=== PATIENT | female | born 1995 | race Caucasian/White ===

== ENCOUNTER 2017-09-20 09:55 | Day surgery (SDC) | payer SELFPAY ==
[2017-09-20 10:33] VITALS: BMI 28.3
--- NOTE | 2017-09-20 12:47 | ER ---
DATE OF ENCOUNTER: 09/20/2017 OB ER ENCOUNTER [employer] SERVICE MANAGER: Dr. Korey Atkins. CHIEF COMPLAINT: Pelvic pain. HISTORY OF PRESENT ILLNESS: The patient is a 22-year-old G3, P2 female with an intrauterine at 33 weeks and 6 days, who is presenting to Labor and Delivery with complaints of pelvic pain that has been intermittent since yesterday afternoon. Patient reports pelvic pain is in her lower pelvis and into her vaginal wall. She reports that the pain is sharp and can be painful at times, debilitating, making it hard to move. Patient describes it is difficult to get out of bed, difficult to roll over in bed, difficult to get out from seating. Patient denies any falls or trauma. She denies any unusual exertion. She reports that she rests at home and tries not to do very much. She denies any fever, fall, headache, chest pain, shortness of breath, nausea, vomiting, diarrhea, constipation. She denies any new rashes. She denies any hip problems, back problems, muscle aches, and weakness. She denies vaginal bleeding, leakage of fluid, or unusual discharge. She denies any urinary urgency or frequency. PAST MEDICAL HISTORY: Negative. PAST SURGICAL HISTORY: Negative. ALLERGIES: No known drug allergies. MEDICATIONS: vitamins. SOCIAL HISTORY: Denies drug, alcohol, or tobacco use. OB LABS: Blood type is A positive. Antibody screen is negative. She is rubella immune, RPR is nonreactive. Hepatitis B surface antigen is nonreactive. HIV is nonreactive. OBSTETRIC HISTORY: The patient has a history of a first trimester bleed with this . REVIEW OF SYSTEMS: Per HPI. PHYSICAL EXAMINATION: VITAL SIGNS: Blood pressure is 112/60, heart rate of 81, respiratory rate of 20 , satting 97% on room air, temperature 98.6. GENERAL: She appears to be in no acute distress. She is alert and oriented, cooperative and pleasant to interact with. HEENT: Head is normocephalic, atraumatic. LUNGS: Clear to auscultation bilaterally. HEART: Regular rate and rhythm. ABDOMEN: Soft and gravid. She does have some tenderness to palpation in her lower pelvis and in her inguinal region with deviation of the uterus. EXTREMITIES: Nontender and nonedematous. PELVIC: Vulva has discharge along her perineum that is white. Vaginal exam with speculum, there is a significant amount of discharge, white in color. Cervix does not appear to have any erythema. On cervical exam, cervix is dilated on the exterior os and closed anteriorly consistent with a multiparous cervix. Unable to feel presentation. heart tracing performed for pelvic pain in . Baseline is noted to be in the 120s with moderate long-term variability, positive accelerations, no decelerations. Tocometer shows some irritability, but no consistent contractions. UA and PENCILLER-3 were ordered and are pending. ASSESSMENT AND PLAN: The patient is a 22-year-old female with an intrauterine at 33 weeks and 6 days presenting with pelvic pain consistent with musculoskeletal pain. Patient is likely experiencing some ligamentous pain associated with . The patient has been given reassurance. Fetus has a reactive NST and category 1 tracing. PENCILLER-3 and UA are pending. The patient will be discharged to home and once results are available, we will call in appropriate antibiotics and notify the patient. Addendum: VP3 neg/neg/neg UA NEG MTDD
[2017-09-20 13:08] LABS: Bilirubin Negative (Negative); Blood, Urine Negative (Negative); Clarity CLEAR (Clear); Glucose, Urine (Dipstick) Negative (Negative); Leukocyte Negative (Negative); Nitrite Negative (Negative); Protein, Urine (Dipstick) Negative (Neg-Trace); Specific Gravity, Urine 1.005 (1.002-1.036); Urobilinogen 0.2 mg/dL (0.2-1.0); pH, Urine 7.5 (5.0-9.0)
[2017-09-20 13:09] LABS: Bacteria/HPF None Seen HPF (None Seen); Hyaline Casts/LPF 0-3 HYALINE CAST LPF (0-3 Hyaline); Pathc Cast-AUWi Flag 0.14 (0-2.49); RBC/HPF 0-3 HPF (0-3); Squamous Epithelial 0-3 HPF (0-3); WBC/HPF None Seen HPF (0-3)
== END 2017-09-20 12:32 | disposition home or self-care (01) ==
LOC: L&D/OP 09:55
PROVIDERS: ATTEND Obstetrics & Gynecology
DX: O99.89 Other specified diseases and conditions complicating pregnancy, childbirth and the puerperium (principal); R10.2 Pelvic and perineal pain; Z3A.33 33 weeks gestation of pregnancy
CPT/HCPCS: 81001; 87480; 87510; 87660; 99283

== ENCOUNTER 2017-10-09 14:55 | Emergency (ER) | payer OTHER, SELFPAY ==
--- NOTE | 2017-10-09 15:42 | ULT ---
RIGHT LOWER EXTREMITY VENOUS ULTRASOUND WITH DOPPLER: History Right leg pain, x 1 week. The patient is 37 weeks . COMPARISON: None. TECHNIQUE: Celaya scale, color flow, Doppler imaging, with spectral waveform analysis was performed of the right l ower extremity venous system. FINDINGS: There is compressibility, presence of flow, and augmentation in the common femoral vein, femoral vein , and popliteal vein. There is flow in the greater saphenous vein, profunda vein, and posterior tibi al vein. IMPRESSION: No evidence of thrombus in the right lower extremity deep venous system. POS: SHANTI
[2017-10-09 16:40] LABS: Hemoglobin 11.1 g/dL (12.0-16.0); Mean Corpuscular HGB CONC 34.4 g/dL (32.0-36.0); Mean Corpuscular Hemoglobin 28.5 pg (27.0-31.0); Mean Corpuscular Volume 82.7 fL (78.0-98.0); Mean Platelet Volume 8.2 fL (7.4-10.4); Platelet Count 228 thou/uL (130-400); RBC Distribution Width 12.5 % (11.5-14.5); Red Blood Cell (RBC) Count 3.92 mill/uL (4.20-5.40); White Blood Cell (WBC) Count 13.7 thou/uL (4.8-10.8)
[2017-10-09 16:55] LABS: Band 1 % (5-11); Lymphocytes 20 % (21-51); MDiff Complete? YES; Monocytes 3 % (0-10); Neutrophil 76 % (42-75); PLT Morphology Comment Appears Adequate
[2017-10-09 17:02] LABS: ALT (SGPT) Less than 7 U/L (8-55); AST (SGOT) 14 U/L (5-34); Albumin 3.5 g/dL (3.5-5.0); Alkaline Phosphatase 134 U/L (40-150); Anion Gap 14 mmol/L (10-20); BUN (Urea Nitrogen) 7 mg/dL (7.0-18.7); Bilirubin, Total 0.7 mg/dL (0.2-1.2); Calc. Creatinine Clearance 0 mL/min (70-130); Calcium 9.2 mg/dL (7.8-10.44); Carbon Dioxide 23 mmol/L (22-29); Chloride 103 mmol/L (98-107); Estimated GFR-MDRD Greater than 90; Globulin 3.3 g/dL (2.4-3.5); Glucose 92 mg/dL (70-105); Potassium 3.7 mmol/L (3.5-5.1); Protein, Total 6.8 g/dL (6.0-8.3); Sodium 136 mmol/L (136-145)
== END 2017-10-09 17:27 | disposition home or self-care (01) ==
LOC: ERS 14:55
DX: R60.0 Localized edema (principal)
CPT/HCPCS: 36415; 80053; 85025; 85379

== ENCOUNTER 2017-10-12 15:26 | Inpatient (IN) | payer OTHER, SELFPAY ==
[2017-10-12 15:54] VITALS: BMI 29.9
[2017-10-12] MEDS ORDERED: Promethazine HCl 25 MG/ML VIAL IM PRN ×2 (18:20→21:54)
[2017-10-12] MEDS ORDERED: Acetaminophen 500 MG TAB PO PRN (18:20)
[2017-10-12] MEDS ORDERED: Docusate 100 MG CAP PO PRN (18:20)
[2017-10-12] MEDS ORDERED: Ondansetron HCl/PF 4 MG/2 ML Vial IVP PRN ×2 (18:20→21:54)
[2017-10-12] MEDS ORDERED: Butorphanol Tartrate 1 MG/ML VIAL SLOW IVP PRN (18:20)
[2017-10-12] MEDS ORDERED: Zolpidem Tartrate 5 MG TAB PO PRN (18:20)
[2017-10-12] MEDS ORDERED: NS / Oxytocin 40 units/1000ml 1,000 ML IV PRN (18:23)
[2017-10-12] MEDS ORDERED: Ibuprofen 800 MG TAB PO PRN (18:23)
[2017-10-12] MEDS ORDERED: Lidocaine 1% (PF) 30 ML VIAL SC PRN (18:23)
[2017-10-12] MEDS ORDERED: Acetaminophen/Codeine 30-300mg Tablet PO PRN ×2 (18:23)
[2017-10-12] MEDS: Lactated Ringer's 1,000 ML IV SCH ×2 (19:27→21:37)
[2017-10-12 19:51] LABS: Hemoglobin 10.4 g/dL (12.0-16.0); Mean Corpuscular HGB CONC 34.3 g/dL (32.0-36.0); Mean Corpuscular Hemoglobin 27.8 pg (27.0-31.0); Mean Corpuscular Volume 80.9 fL (78.0-98.0); Mean Platelet Volume 8.1 fL (7.4-10.4); Platelet Count 230 thou/uL (130-400); RBC Distribution Width 12.6 % (11.5-14.5); Red Blood Cell (RBC) Count 3.73 mill/uL (4.20-5.40)
[2017-10-12 20:30] LABS: Syphilis Antibody Nonreactive (Nonreactive); Syphilis Antibody Index 0.04 S/CO (<1.00 Non-Reactive)
[2017-10-12] MEDS ORDERED: Bupivacaine 0.75% 13.4 ML, fentaNYL Citrate/PF 400 MCG in Sodium Chloride 0.9% 78.6 ML EPIDURAL SCH (21:00)
[2017-10-12] MEDS ORDERED: DISCONTINUE ALL PREVIOUS NARCOTICS FS SCH (21:00)
[2017-10-12] MEDS ORDERED: Eucerin (Mineral Oil/Petrolatum,White) 30 gm Jar TOP PRN (21:54)
[2017-10-12] MEDS ORDERED: ePHEDrine/0.9% NaCl/PF SYRINGE 50 mg/10 ml SLOW IVP PRN (21:54)
[2017-10-12] MEDS ORDERED: Naloxone HCl 0.4 mg/ml Vial IVP PRN ×2 (21:54)
[2017-10-12] MEDS ORDERED: Acetaminophen 325 MG TAB PO PRN (21:54)
[2017-10-12] MEDS ORDERED: Lactated Ringer's 500 ML IV PRN (21:54)
[2017-10-12] MEDS ORDERED: fentaNYL Citrate/PF 400 MCG, Bupivacaine 0.5% 20 ML in Sodium Chloride 0.9% 72 ML EPIDURAL SCH (22:00)
[2017-10-12] MEDS ORDERED: Communication Order-Pharmacy FS SCH (22:00)
[2017-10-13] LABS: HBSAg Index 0.15 S/CO (0-0.99); Hep B Surf Ag Non-Reactive S/CO (NonReactive)
[2017-10-13] MEDS: diphenhydrAMINE 50 MG/ML VIAL IVP PRN ×2 (03:24→07:28)
[2017-10-13] MEDS: Bupivacaine 0.75% 13.4 ML, fentaNYL Citrate/PF 400 MCG in Sodium Chloride 0.9% 78.6 ML EPIDURAL SCH ×2 (04:12→10:22)
[2017-10-13] MEDS: Lactated Ringer's 1,000 ML IV SCH (05:44)
[2017-10-13] MEDS ORDERED: Bisacodyl 10 MG SUPP PR PRN (12:54)
[2017-10-13] MEDS ORDERED: Benzocaine/Menthol 20-0.5% 60 ML CAN TOP PRN (12:54)
[2017-10-13] MEDS ORDERED: Adacel (T-DAP) 0.5 ML VIAL IM ONE (12:54)
[2017-10-13] MEDS ORDERED: diphenhydrAMINE 25 MG CAP PO PRN (12:54)
[2017-10-13] MEDS ORDERED: Zolpidem Tartrate 5 MG TAB PO PRN (12:54)
[2017-10-13] MEDS ORDERED: Lanolin Ointment 7 GM TUBE TOP PRN (12:54)
[2017-10-13] MEDS ORDERED: Preparation H Ointment 28 GM TUBE PR PRN (12:54)
[2017-10-13] MEDS ORDERED: Ondansetron HCl/PF 4 MG/2 ML Vial IVP PRN (12:54)
[2017-10-13] MEDS ORDERED: Acetaminophen/Codeine 30-300mg Tablet PO PRN ×2 (12:54)
[2017-10-13] MEDS ORDERED: Milk Of Magnesia 30 ML UDCUP PO PRN (12:54)
[2017-10-13] MEDS ORDERED: NS / Oxytocin 40 units/1000ml 1,000 ML IV SCH (13:00)
[2017-10-13] MEDS: Ferrous Sulfate 325 MG TAB PO SCH (17:05)
[2017-10-13] MEDS: Ibuprofen 800 MG TAB PO SCH ×2 (17:20→21:27)
[2017-10-13] MEDS: Docusate Calcium (SURFAK) 240 MG CAP PO SCH (21:27)
[2017-10-14 06:30] LABS: Hemoglobin 9.5 g/dL (12.0-16.0); Mean Corpuscular HGB CONC 33.3 g/dL (32.0-36.0); Mean Corpuscular Volume 84.1 fL (78.0-98.0); Mean Platelet Volume 8.3 fL (7.4-10.4); Platelet Count 204 thou/uL (130-400); RBC Distribution Width 12.7 % (11.5-14.5); Red Blood Cell (RBC) Count 3.39 mill/uL (4.20-5.40)
[2017-10-14] MEDS: Ibuprofen 800 MG TAB PO SCH ×3 (07:04→21:26)
[2017-10-14] MEDS: Docusate Calcium (SURFAK) 240 MG CAP PO SCH ×2 (08:58→21:27)
[2017-10-14] MEDS: Ferrous Sulfate 325 MG TAB PO SCH ×2 (08:58→18:02)
[2017-10-14] MEDS ORDERED: Bupivacaine 0.25% HCL 30 ML VIAL ONE (09:57)
[2017-10-14] MEDS ORDERED: Lidocaine 2% MPF 10 ML AMP (For Epidural Use) ONE (09:57)
[2017-10-15] MEDS: Ibuprofen 800 MG TAB PO SCH (06:06)
[2017-10-15 07:58] VITALS: BP 79/57; TEMP 98.1
[2017-10-15] MEDS: Ferrous Sulfate 325 MG TAB PO SCH (09:16)
[2017-10-15] MEDS: Docusate Calcium (SURFAK) 240 MG CAP PO SCH (09:16)
== END 2017-10-14 11:10 | disposition home or self-care (01) | DRG 775 ==
LOC: L&D/OP 15:26 → L&D 18:41 → 3SW 10-13 16:17
PROVIDERS: ADMIT Obstetrics & Gynecology; ATTEND Obstetrics & Gynecology
PROC: 10E0XZZ Delivery of Products of Conception, External Approach (ICD-10-PCS; principal; 2017-10-12)
DX: O60.14X0 Preterm labor third trimester with preterm delivery third trimester, not applicable or unspecified (principal); Z3A.36 36 weeks gestation of pregnancy; Z37.0 Single live birth
CPT/HCPCS: 36415; 51702; 85027; 86780; 86850; 86900; 86901; 87340; 90715; 99285; J1200; J2001; J2310; J3010; J7050; S0020